=== PATIENT | female | born 1970 | race Hispanic/Latino ===

== ENCOUNTER 2024-09-05 09:43 | Emergency (ER) | payer OTHER ==
[~2024-09-05] VITALS: Ht 152.4 cm; Wt 70.3 kg
[2024-09-05 11:24] LABS: BASO # 0.1 10^3/uL (0.0-0.2); BASO % 0.6 % (0.0-1.0); EOS % 0.4 % (0.0-3.0); HEMATOCRIT 42.3 % (36.0-47.0); HEMOGLOBIN 14.5 g/dl (12.0-15.5); LYMPH # 1.5 10^3/uL (1.5-5.0); LYMPH % 16.2 % (24.0-44.0); MEAN CORPUSCULAR HEMOGLOBIN 30.1 pg (27.0-33.0); MEAN CORPUSCULAR HGB CONC 34.3 g/dl (32.0-36.5); MEAN CORPUSCULAR VOLUME 87.8 fl (80.0-96.0); MONO # 0.3 10^3/uL (0.0-0.8); MONO % 3.8 % (2.0-8.0); NEUTROPHILS # 7.1 10^3/uL (1.5-8.5); NEUTROPHILS % 78.7 % (36.0-66.0); PLATELET COUNT, AUTOMATED 241 10^3/uL (150-450); RED BLOOD COUNT 4.82 10^6/uL (4.00-5.40); WHITE BLOOD COUNT 9.1 10^3/uL (4.0-10.0)
[2024-09-05 11:55] LABS: LIPASE 30 U/L (12-53)
[2024-09-05 11:57] LABS: ALKALINE PHOSPHATASE 81 U/L (35-104); ALT/SGPT 20 U/L (7.0-40); AST/SGOT 18 U/L (<34); BILIRUBIN,DIRECT 0.1 MG/DL (<0.4); BILIRUBIN,TOTAL 0.6 MG/DL (0.3-1.2); BLOOD UREA NITROGEN 13 MG/DL (9-23); CALCIUM LEVEL 9.3 MG/DL (8.5-10.1); CARBON DIOXIDE LEVEL 23 MMOL/L (20-31); CHLORIDE LEVEL 107 MMOL/L (98-107); CREATININE FOR GFR 0.67 MG/DL (0.55-1.30); GLOMERULAR FILTRATION RATE > 60.0 (>51); GLUCOSE, FASTING 105 MG/DL (60-100); POTASSIUM SERUM 4.2 MMOL/L (3.5-5.1); SODIUM LEVEL 142 MMOL/L (136-145); TOTAL PROTEIN 7.4 G/DL (5.7-8.2)
[2024-09-05 12:08] LABS: RSV AMPLIFICATION NEGATIVE (NEGATIVE)
[2024-09-05] MEDS: ONDANSETRON 4MG 2ML VIAL IV ONE (12:22)
[2024-09-05] MEDS: MECLIZINE 25 MG TABLET PO ONE (12:23)
[2024-09-05] MEDS ORDERED: CETI-24 PO (14:08)
[2024-09-05] MEDS ORDERED: MECL-209 PO (14:08)
[2024-09-05] MEDS ORDERED: FLON1SPR NARES (14:08)
[2024-09-05 14:15] VITALS: BP 108/59; O2SAT 98
[2024-09-05 14:39] VITALS: TEMP 96.7
== END 2024-09-05 14:41 | disposition home or self-care (01) ==
LOC: EDBD 09:43 → M ED 09:43
DX: H65.02 Acute serous otitis media, left ear (principal)
CPT/HCPCS: 80053; 82248; 83690; 85025; 87631; 93005; 96374; 99285; J2405